=== PATIENT | male | born 2000 | race African-American/Black ===

== ENCOUNTER 2025-01-14 16:27 | Emergency (ER) | payer OTHER, SELFPAY ==
[2025-01-14 16:38] VITALS: BP 152/98
[2025-01-14] MEDS: DECADRON 10 MG PO (19:05)
[2025-01-14 19:06] VITALS: BP 129/92; BMI 25.8
--- NOTE | 2025-01-14 20:07 | ED.GENMED ---
History of Present Illness
General
Chief Complaint: Allergic Reaction
Time Seen by Provider: 01/14/25 18:57
History of Present Illness
History of Present Illness:
24-year-old male with history of shellfish allergy presenting for concern of allergy. Patient reports prior to arrival he ate some ground beef and started to feel swelling in his gums and his face. He then since started to have some shortness of
breath. Denies any history of anaphylaxis. He had Benadryl upon arrival to the hospital notes some improvement. Denies any rashes. Denies ever having to give himself epinephrine. Denies any nausea or vomiting. Denies additional acute medical
complaints
Phy Exam
Physical Exam
Physical Exam:
General: Well-appearing, no clinical signs of dehydration, nontoxic and in no acute distress
HEENT: protecting airway, no oropharyngeal swelling. Mild facial swelling.
Neck: appears supple
CV: Normal heart rate, regular rhythm, no evidence of cyanosis
Resp: No accessory muscle use, no increased work of breathing, lungs clear to auscultation bilaterally
Abd: No distention
Extremities: No deformities, no swelling
Neuro: alert, no focal neurologic deficit
: deferred
Rectal: deferred
Psych: Normal affect
Skin: Intact
Course
Orders/Labs/Results
Orders:
Orders
01/14/25 19:01
Dexamethasone Pf [Decadron] 10 mg PO NOW STA
Vital Signs
Initial and Last Documented VS:
Initial Vital Signs
Temp Pulse Resp BP Pulse Ox
98.6 F 115 20 152/98 100
01/14/25 16:38 01/14/25 16:38 01/14/25 16:38 01/14/25 16:38 01/14/25 16:38
Last Documented Vital Signs
Temp Pulse Resp BP Pulse Ox
98.6 F 85 18 129/92 100
01/14/25 16:38 01/14/25 19:06 01/14/25 19:06 01/14/25 19:06 01/14/25 19:12
MDM/Problems Addressed
MDM/Problems Addressed:
24-year-old male presenting for concern of allergic reaction. Vital signs are significant for mild tachycardia which is since resolved.
On exam, patient is resting comfortably, no respiratory distress. Mild swelling to the face. No oropharyngeal swelling. No stridorous respirations. Lungs are clear to auscultation. No concern for anaphylaxis at this time. Will administer a
dose of Decadron and continue to monitor
20:10 - Patient remains stable. Feel stable for discharge with continued outpatient follow-up and outpatient allergy testing. Return precautions discussed and patient verbalized understanding.
*Pulse Oximetry
SaO2: 100
Oxygen Mode of Delivery: Room air
Patient hypoxic: no
*Critical Care Note
Total Time (30-74mins, 75-104mins- exclusive of procedures): Not Applicable
ED Attending Note
-
Portions of this chart may have been created with voice recognition software.� Occasional wrong word or��sound alike� substitutions may have occurred due to the inherent limitations of voice recognition software.
Discharge Plan
Interventions
Interventions:
*Risk Screen - Suicide Last Done: 01/14/25 16:38
*General Assessment Last Done: 01/14/25 16:38
ED- Cardiac Assessment Last Done: 01/14/25 19:12
ED- Pulmonary Assessment Last Done: 01/14/25 19:12
ED-Skin Assessment Last Done: 01/14/25 19:12
Discharge Date and Time
Print Language: WELSH
[2025-01-14 20:28] VITALS: BP 127/90
== END 2025-01-14 20:29 | disposition home or self-care (01) ==
LOC: EMR 16:27
PROVIDERS: EMERGENCY PHYSICIAN Student in an Organized Health Care Education/Training Program
DX: T78.1XXA Other adverse food reactions, not elsewhere classified, initial encounter (principal); R22.0 Localized swelling, mass and lump, head; X58.XXXA Exposure to other specified factors, initial encounter; Z91.013 Allergy to seafood
CPT/HCPCS: 99283